=== PATIENT | male | born 1940 | race Caucasian/White ===

== ENCOUNTER → 2016-06-10 | Outpatient (CLI) | payer OTHER ==
[~2016-06-10] MED LIST: ASPIRIN325; CELEXA 10 MG TA10 M1 PO; FLAX OIL1000 MG PO; LIPITOR80 MG PO; LORAZEPAM 0.50.5 MG PO; NEURONTIN 300M300 M2 PO; OMEPRAZOLE20 MG PO; QUINAPRIL 20 MG20 MG PO
== END ==
LOC: CAT 09:17
DX: R91.8 Other nonspecific abnormal finding of lung field (principal); J98.11 Atelectasis; J94.8 Other specified pleural conditions; J90 Pleural effusion, not elsewhere classified; Z90.49 Acquired absence of other specified parts of digestive tract

== ENCOUNTER → 2016-08-22 | Outpatient (CLI) | payer OTHER | LOC: RAD 10:01 | DX: J90 Pleural effusion, not elsewhere classified (principal); R91.8 Other nonspecific abnormal finding of lung field; J98.11 Atelectasis ==

== ENCOUNTER → 2016-11-21 | Outpatient (CLI) | payer OTHER | LOC: RAD 09:09 | DX: J90 Pleural effusion, not elsewhere classified (principal) ==

== ENCOUNTER → 2017-02-23 | Outpatient (CLI) | payer OTHER | LOC: RAD 10:32 | DX: J90 Pleural effusion, not elsewhere classified (principal) ==

== ENCOUNTER → 2017-08-31 | Outpatient (CLI) | payer OTHER | LOC: RAD 06:05 | DX: J90 Pleural effusion, not elsewhere classified (principal); Z88.1 Allergy status to other antibiotic agents ==

== ENCOUNTER → 2017-10-31 | Outpatient (CLI) | payer OTHER | LOC: RAD 09:33 | DX: R05 Cough (principal) ==

== ENCOUNTER → 2018-03-22 | Outpatient (CLI) | payer OTHER | LOC: RAD 09:37 | DX: J98.4 Other disorders of lung (principal) ==

== ENCOUNTER → 2018-10-30 | Outpatient (CLI) | payer OTHER | LOC: RAD 13:52 | DX: J98.4 Other disorders of lung (principal) ==

== ENCOUNTER → 2019-10-31 | Outpatient (CLI) | payer OTHER | LOC: SJCVC 12:28 | PROVIDERS: ATTEND Internal Medicine Cardiovascular Disease | DX: R94.31 Abnormal electrocardiogram [ECG] [EKG] (principal); I45.10 Unspecified right bundle-branch block; I48.21 Permanent atrial fibrillation; E78.00 Pure hypercholesterolemia, unspecified; I87.2 Venous insufficiency (chronic) (peripheral); D68.59 Other primary thrombophilia; I10 Essential (primary) hypertension; R00.1 Bradycardia, unspecified ==

== ENCOUNTER → 2020-06-11 | Outpatient (CLI) | payer OTHER | LOC: SJCVC 10:45 | PROVIDERS: ATTEND Internal Medicine Cardiovascular Disease | DX: R94.31 Abnormal electrocardiogram [ECG] [EKG] (principal); I45.10 Unspecified right bundle-branch block; I48.21 Permanent atrial fibrillation; I10 Essential (primary) hypertension; E78.00 Pure hypercholesterolemia, unspecified; D68.59 Other primary thrombophilia; J44.9 Chronic obstructive pulmonary disease, unspecified; E78.5 Hyperlipidemia, unspecified; G47.33 Obstructive sleep apnea (adult) (pediatric); K21.9 Gastro-esophageal reflux disease without esophagitis; I25.10 Atherosclerotic heart disease of native coronary artery without angina pectoris; E66.01 Morbid (severe) obesity due to excess calories; Z79.899 Other long term (current) drug therapy; Z87.891 Personal history of nicotine dependence ==

== ENCOUNTER → 2021-01-29 | Outpatient (CLI) | payer OTHER | LOC: RAD 09:20 | PROVIDERS: ATTEND Internal Medicine Pulmonary Disease | DX: J98.4 Other disorders of lung (principal); R06.02 Shortness of breath; R06.00 Dyspnea, unspecified; I51.7 Cardiomegaly ==

== ENCOUNTER → 2021-03-03 | Outpatient (CLI) | payer OTHER | LOC: SJCVC 11:45 | PROVIDERS: ATTEND Internal Medicine Cardiovascular Disease | DX: I45.10 Unspecified right bundle-branch block (principal); R94.31 Abnormal electrocardiogram [ECG] [EKG]; I48.91 Unspecified atrial fibrillation; I48.21 Permanent atrial fibrillation; R00.1 Bradycardia, unspecified; J44.9 Chronic obstructive pulmonary disease, unspecified; E78.5 Hyperlipidemia, unspecified; G47.33 Obstructive sleep apnea (adult) (pediatric); E11.9 Type 2 diabetes mellitus without complications; I10 Essential (primary) hypertension; E78.00 Pure hypercholesterolemia, unspecified; Z87.891 Personal history of nicotine dependence; Z79.899 Other long term (current) drug therapy; Z88.1 Allergy status to other antibiotic agents; Z95.818 Presence of other cardiac implants and grafts ==